=== PATIENT | female | born 1970 | race Caucasian/White ===

== ENCOUNTER 2023-01-31 18:30 | Emergency (ER) | payer BC, OTHER ==
[2023-01-31 18:49] VITALS: BP 134/91; PULSE 65; RESP 18; TEMP 98.7; BMI 26.9
== END 2023-01-31 19:24 | disposition home or self-care (01) ==
LOC: FER 18:30
DX: Z48.01 Encounter for change or removal of surgical wound dressing (principal)
CPT/HCPCS: 99282-25